=== PATIENT | male | born 1950 ===

== ENCOUNTER 2018-08-15 10:28 | Outpatient (CLI) | payer MEDICARE | END 2018-08-15 10:29 | disposition home or self-care (01) | LOC: C.PAT 10:28 | DX: H25.12 Age-related nuclear cataract, left eye (principal) ==

== ENCOUNTER 2018-08-29 08:09 | Day surgery (SDC) | payer MEDICARE ==
[2018-08-28 11:34] VITALS: BMI 25.3
[~2018-08-29 08:09] MED LIST: Carbachol 0.01% IO ONE; Chondroitin/Hyaluronate Opth Syringe KIT (0.55 ml-0.5 ml) IO ONE; Ciprofloxacin 0.3% OPTH SOLN OS SCH; Hyaluronidase Human, Recombi 150 U/ML VIAL ONE; Ketorolac Tromethamine 0.5% Opth Soln (3 ml) OS SCH; Lactated Ringer's 500 ML IV ONE; Lidocaine 2% MPF (5 ml) Inj ONE; Phenylephrine 2.5% Opht Soln OS SCH; Povidone Iodine Ophthalmic 5% Soln ONE; Tetracaine 0.5% Ophth (OR ONLY) ONE; Tobramycin/Dexamethasone OPHT OINT ONE; Tropicamide 1% Opht SOLUTION OS SCH; acetaZOLAMIDE 500 mg SR Cap PO ONE
[2018-08-29] MEDS ORDERED: Lactated Ringer's 500 ML IV ONE (09:44)
[2018-08-29 10:00] VITALS: RESP 18
[2018-08-29] MEDS ORDERED: Midazolam 2 MG/2 ML VIAL ONE (11:23)
[2018-08-29 12:07] VITALS: BP 143/83; PULSE 71; TEMP 97; O2SAT 100
[2018-08-29] MEDS ORDERED: acetaZOLAMIDE 500 mg SR Cap PO ONE (12:15)
--- NOTE | 2018-08-29 22:37 | OP ---
PROCEDURE DATE: 08/29/2018 PREOPERATIVE DIAGNOSIS: Mature cataract, left eye. POSTOPERATIVE DIAGNOSIS: Mature cataract, left eye. OPERATIVE PROCEDURE: Phacoemulsification, left eye, insertion of posterior chamber lens implant. SURGEON: James Narvaez MD CO-SURGEON: Russ Hudson MD ANESTHESIA: Local IV sedation. DESCRIPTION OF PROCEDURE: The patient was brought into the operating room, placed in supine position, prepped and draped in the usual fashion for ophthalmic surgery. Lid speculum was inserted, lids and exposing globe. A side-port incision was made superiorly and inferiorly with a disposable sharp blade. Anterior chamber was filled with Viscoat. A near clear corneal incision was made temporally with a 2.75-mm keratome. Capsulorrhexis was then performed with Utrata forceps. Hydrodissection carried out with balanced salt solution. Nucleus was phacoemulsified. Remaining cortical fragments were removed with a split irrigation and aspiration system. The capsular sac was filled with Provisc. A posterior chamber lens was then injected into the capsular sac and rotated into horizontal position. Provisc was aspirated out of the anterior chamber. The pupil was constricted with Miochol. The wound was found to be watertight. Topical Betadine, Timoptic, and TobraDex ointment and pressure patch were applied. The patient tolerated the procedure well. James Narvaez MD
== END 2018-08-29 12:33 | disposition home or self-care (01) ==
LOC: C.SDS 08:09
PROVIDERS: ATTEND Ophthalmology
DX: H25.12 Age-related nuclear cataract, left eye (principal)
CPT/HCPCS: 66984; 82948; J2250; J3010; J3470; J7120; V2632

== ENCOUNTER 2018-09-12 07:18 | Day surgery (SDC) | payer MEDICARE ==
[2018-09-05 07:53] VITALS: BMI 20.3
[~2018-09-12 07:18] MED LIST changes: -Carbachol 0.01% IO ONE; -Chondroitin/Hyaluronate Opth Syringe KIT (0.55 ml-0.5 ml) IO ONE; -Ciprofloxacin 0.3% OPTH SOLN OS SCH; -Hyaluronidase Human, Recombi 150 U/ML VIAL ONE; +Ketorolac Tromethamine 0.5% Opth Soln (3 ml) OD SCH; -Ketorolac Tromethamine 0.5% Opth Soln (3 ml) OS SCH; -Lactated Ringer's 500 ML IV ONE; -Lidocaine 2% MPF (5 ml) Inj ONE; +Ofloxacin 0.3% Ophth Soln OD SCH; -Phenylephrine 2.5% Opht Soln OS SCH; -Povidone Iodine Ophthalmic 5% Soln ONE; -Tetracaine 0.5% Ophth (OR ONLY) ONE; -Tobramycin/Dexamethasone OPHT OINT ONE; +Tropicamide 1% Opht SOLUTION OD SCH; -Tropicamide 1% Opht SOLUTION OS SCH
[2018-09-12] MEDS ORDERED: Carbachol 0.01% IO ONE (07:25)
[2018-09-12] MEDS ORDERED: Hyaluronidase Human, Recombi 150 U/ML VIAL ONE (07:25)
[2018-09-12] MEDS ORDERED: Povidone Iodine Ophthalmic 5% Soln ONE (07:25)
[2018-09-12] MEDS ORDERED: Tobramycin/Dexamethasone OPHT OINT ONE (07:25)
[2018-09-12] MEDS ORDERED: Tetracaine 0.5% Ophth (OR ONLY) ONE (07:25)
[2018-09-12] MEDS ORDERED: Chondroitin/Hyaluronate Opth Syringe KIT (0.55 ml-0.5 ml) IO ONE (07:25)
[2018-09-12] MEDS ORDERED: Lidocaine 2% MPF (5 ml) Inj ONE (07:26)
[2018-09-12] MEDS ORDERED: Lactated Ringer's 1,000 ML IV ONE (08:08)
[2018-09-12] MEDS ORDERED: Midazolam 2 MG/2 ML VIAL ONE (10:03)
[2018-09-12 11:02] VITALS: PULSE 98; O2SAT 98
[2018-09-12 11:08] VITALS: RESP 15
[2018-09-12 11:25] VITALS: BP 159/91; TEMP 97.7
--- NOTE | 2018-09-12 21:12 | OP ---
PROCEDURE DATE: 09/12/2018 PREOPERATIVE DIAGNOSIS: Mature cataract, right eye. POSTOPERATIVE DIAGNOSIS: Mature cataract, right eye. PROCEDURE: Phacoemulsification, right eye, insertion of posterior chamber lens implant. SURGEON: James Melara MD CO-SURGEON: Russ Hudson MD ANESTHESIA TYPE: Local IV sedation. PROCEDURE: The patient was brought into the operating room, placed in supine position, prepped and draped in the usual fashion for ophthalmic surgery. Lid speculum was inserted, lids and exposing globe. A side-port incision was made superiorly and inferiorly with a disposable sharp blade. Anterior chamber was filled with Viscoat. A near clear corneal incision was made temporally with a 2.75-mm keratome. Capsulorrhexis was then performed with Utrata forceps. Hydrodissection carried out with balanced salt solution. Nucleus was phacoemulsified. Remaining cortical fragments were removed with a split irrigation and aspiration system. The capsular sac was filled with Provisc. A posterior chamber lens was then injected into the capsular sac and rotated into horizontal position. Provisc was aspirated out of the anterior chamber. The pupil was constricted with Miochol. The wound was found to be watertight. Topical Betadine, Timoptic, and TobraDex ointment and pressure patch were applied. The patient tolerated the procedure well. James Narvaez MD
== END 2018-09-12 11:29 | disposition home or self-care (01) ==
LOC: C.SDS 07:18
PROVIDERS: ATTEND Ophthalmology
DX: H25.11 Age-related nuclear cataract, right eye (principal)
CPT/HCPCS: 66984; 82948; J2250; J3010; J3470; J7120; V2632